=== PATIENT | male | born 1960 | race Caucasian/White ===

== ENCOUNTER 2017-06-12 08:59 | Emergency (ER) | payer OTHER ==
[~2017-06-12] VITALS: Ht 167.6 cm; Wt 63.5 kg
[~2017-06-12 08:59] MED LIST: ACET325 PO; ATHLETE S FOOT TOP; Bactrim Ds Tab1 EACH PO; Bactroban22 GM TOP; CEPH500 PO; CHOL10002; CHOL10002 PO; Cleocin HCl300 MG PO; DIPH50 PO; ERGO400 PO; HYDCHLSU PO; HYDR1TAB94 PO; IBUP400; IBUP400 PO; IBUP600 PO; LEVFLO500 PO; LOPE2EL PO; LORA1; Norco 5-325 Ta1 EACH PO; PARO10 PO; PENVK500 PO; PERIDEX15 ML MM; PERIDEX15 ML PO; PRED20 PO; PROM25 PO; SILSUL1TC TOP; TERB24TC TOP; TRAM50; TRAM50 PO; TRIA80TC; TRIA80TC TOP; TUSSIN PO; Testostero100 MG/1 M IM; [UNRECOGNIZED DRUG - OTHER]
[2017-06-12] MEDS ORDERED: Vibramycin100 MG PO (09:38)
== END 2017-06-12 09:51 | disposition home or self-care (01) ==
LOC: ER 08:59
DX: L03.116 Cellulitis of left lower limb (principal); Z91.09 Other allergy status, other than to drugs and biological substances; Z88.1 Allergy status to other antibiotic agents; Z88.2 Allergy status to sulfonamides; Z79.899 Other long term (current) drug therapy
CPT/HCPCS: 99282

== ENCOUNTER 2018-05-07 08:44 | Emergency (ER) | payer OTHER ==
[~2018-05-07] VITALS: Ht 167.6 cm; Wt 81.7 kg
[~2018-05-07 08:44] MED LIST changes: +Vibramycin100 MG PO
[2018-05-07 10:24] LABS: BASOPHILS ABSOLUTE AUTO 0.02 K/mm3 (0.00-0.23); BASOPHILS PERCENT AUTO 0 % (0-2); EOSINOPHILS ABSOLUTE AUTO 0.01 K/mm3 (0.00-0.68); EOSINOPHILS PERCENT AUTO 0 % (0-6); Hematocrit 45.8 % (37.0-53.0); Hemoglobin 15.3 g/dL (13.5-17.5); IMMATURE GRAN ABSOLUTE AUTO 0.04 K/mm3 (0.00-0.10); IMMATURE GRAN PERCENT AUTO 0 % (0-1); LYMPHOCYTES PERCENT AUTO 4 % (21-46); MONOCYTES ABSOLUTE AUTO 0.79 K/mm3 (0.16-1.47); MONOCYTES PERCENT AUTO 7 % (4-13); Mean Corpuscular HGB 32.2 pg (26.0-34.0); Mean Corpuscular HGB Conc 33.4 g/dL (31.5-36.5); Mean Corpuscular Volume 96 fL (80-100); Mean Platelet Volume 10.3 fL (9.1-12.4); NEUTROPHILS ABSOLUTE AUTO 10.75 K/mm3 (1.96-9.15); NEUTROPHILS PERCENT AUTO 89 % (41-73); Platelet Count 91 K/mm3 (150-400); RDW Standard Deviation 46.7 fL (35.1-46.3); Red Blood Cell Count 4.75 M/mm3 (4.30-5.90); White Blood Cell Count 12.11 K/mm3 (4.00-11.30)
[2018-05-07 10:45] LABS: Anion Gap 8 mmol/L (6-16); Blood Urea Nitrogen 17 mg/dL (8-24); Bun/Creatinine Ratio 13.7 (12.0-20.0); CO2, Blood 28 mmol/L (21-32); Calcium, Blood 8.9 mg/dL (8.5-10.1); Chloride, Blood 103 mmol/L (98-108); Creatinine, Blood 1.24 mg/dL (0.60-1.20); Glomerular Filtration Rate >60 (60-); Glucose, Blood 88 mg/dL (70-99); Potassium, Blood 4.1 mmol/L (3.5-5.5); Sodium, Blood 139 mmol/L (136-145)
[2018-05-07] MEDS ORDERED: CEPH500 PO (10:54)
== END 2018-05-07 11:22 | disposition home or self-care (01) ==
LOC: ER 08:44
PROVIDERS: Emergency Medicine
DX: L03.116 Cellulitis of left lower limb (principal); E55.9 Vitamin D deficiency, unspecified
CPT/HCPCS: 36415; 80048; 83605; 85025; 96365; 99283-25; J0690

== ENCOUNTER → 2018-09-20 | Outpatient (CLI) | payer OTHER | END | disposition home or self-care (01) | LOC: LAB 11:01 → LAB SHORT 11:01 | DX: N39.0 Urinary tract infection, site not specified (principal) | CPT/HCPCS: 87086 ==

== ENCOUNTER 2020-04-10 09:00 | Day surgery (SDC) | payer OTHER ==
[~2020-04-10] VITALS: Ht 165.1 cm; Wt 83.9 kg
[2020-04-10] MEDS ORDERED: DOXAZOSIN MESYLA4 M1 PO (09:55)
[2020-04-10] MEDS ORDERED: TERB250 PO (09:55)
[2020-04-10] MEDS ORDERED: ANTIFUNGAL30 GM TOP (09:55)
[2020-04-10] MEDS ORDERED: DEPO-TESTO200 MG/12 IM (09:55)
[2020-04-10] MEDS ORDERED: NYSTRIT (09:56)
--- NOTE | 2020-04-10 13:49 | NUR ---
04/10/20 1349 Michelle Jones PT IS NON VERBAL. NODS OR SHAKES HEAD. CAREGIVER AT BEDSIDE. DENIES PAIN. NO BLEEDING NOTED. DC INSTRUCTIONS GIVEN. DC HOME.
== END 2020-04-10 13:48 | disposition home or self-care (01) ==
LOC: ORSCSDS 09:00
PROVIDERS: Dentist Pediatric Dentistry
PROC: 0CRXXJ1 Replacement of Lower Tooth, Multiple, with Synthetic Substitute, External Approach (ICD-10-PCS; principal; 2020-04-10 10:30)
PROC: 0CRWXJ1 Replacement of Upper Tooth, Multiple, with Synthetic Substitute, External Approach (ICD-10-PCS; principal; 2020-04-10 10:30)
DX: K02.9 Dental caries, unspecified (principal); K05.30 Chronic periodontitis, unspecified; F84.0 Autistic disorder; F79 Unspecified intellectual disabilities; I42.9 Cardiomyopathy, unspecified; Z85.47 Personal history of malignant neoplasm of testis; E78.00 Pure hypercholesterolemia, unspecified; Z79.899 Other long term (current) drug therapy
CPT/HCPCS: J1100; J1885; J2250; J2405; J2704; J3010; J7120